=== PATIENT | female | born 1995 | race Caucasian/White ===

== ENCOUNTER 2017-03-08 21:27 | Emergency (ER) | payer MEDICAID ==
[~2017-03-08] VITALS: Ht 147.3 cm; Wt 68.0 kg
[2017-03-08 21:27] VITALS: BP_SYST 104
[2017-03-08] MEDS ORDERED: NACL 0.9% 1,000 ML IV ONE (21:44)
[2017-03-08] MEDS ORDERED: ONDANSETRON HCL 4 MG/2 ML VIAL IVP ONE (21:45)
[2017-03-08] MEDS ORDERED: KETOROLAC TROMETHAMINE 30 MG VIAL IVP ONE (21:45)
[2017-03-08 22:12] LABS: BASOPHILS % (AUTO) 0.4 % (0.0-2.0); EOSINOPHILS # (AUTO) 0.2 K/uL (0.0-0.4); HEMATOCRIT 35.2 % (36-48); HEMOGLOBIN 12.1 g/dL (12.0-16.0); LYMPHOCYTES # (AUTO) 1.7 K/uL (1.0-5.5); LYMPHOCYTES % (AUTO) 18.9 % (20.5-51.5); MEAN CORPUSCULAR HEMOGLOBIN 29 pg (27-31); MEAN CORPUSCULAR HGB CONC 35 % (32-36); MEAN CORPUSCULAR VOLUME 84 fL (79.0-98.0); MONOCYTES # (AUTO) 0.6 K/uL (0.0-1.0); MONOCYTES % (AUTO) 7.2 % (1.7-9.3); NEUTROPHILS # (AUTO) 6.4 K/uL (1.8-7.7); NEUTROPHILS % (AUTO) 71.5 % (40.0-70.0); PLATELET COUNT (AUTO) 275 K/uL (130-430); RED BLOOD CELL COUNT(AUTO) 4.17 MIL/uL (4.2-6.2); RED CELL DISTRIBUTION WIDTH 12.6 % (9.0-15.0); WHITE BLOOD COUNT (AUTO) 8.9 K/uL (4.8-10.8)
[2017-03-08 22:45] LABS: CALCIUM 8.6 mg/dL (8.4-11.0); CREATININE 0.56 mg/dL (0.55-1.30); POTASSIUM 3.6 mmol/L (3.5-5.1)
[2017-03-08 22:50] LABS: ALBUMIN 3.3 g/dL (3.4-4.8); TOTAL BILIRUBIN 0.3 mg/dL (0.0-1.0); TOTAL PROTEIN, SERUM 7.2 g/dL (6.4-8.3)
[2017-03-08 22:58] LABS: BILIRUBIN,URINE NEGATIVE (NEGATIVE); BLOOD, URINE NEGATIVE (NEGATIVE); COLOR,URINE YELLOW (YELLOW); GLUCOSE,URINE NEGATIVE (NEGATIVE); KETONES,URINE NEGATIVE (NEGATIVE); LEUKOCYTE ESTERASE ,URINE TRACE (NEGATIVE); NITRITE, URINE NEGATIVE (NEGATIVE); PH,URINE 5.5 (5.0-8.0); PROTEIN URINE NEGATIVE (NEGATIVE); UROBILINOGEN,URINE 0.2 (0.2-1.0)
[2017-03-08 23:05] LABS: CLARITY/URINE SLIGHTLY HAZY (CLEAR)
[2017-03-08 23:12] LABS: BACTERIA,URINE MODERATE /HPF (None Seen); MUCUS,URINE 1+ /LPF (None Seen); RBC,URINE NONE SEEN /HPF (0-3)
[2017-03-08] MEDS ORDERED: LEVOFLOXACIN 500 MG TABLET PO ONE (23:30)
[2017-03-08] MEDS ORDERED: fentaNYL CITRATE/PF 100 MCG/2 ML AMP IVP ONE (23:30)
[2017-03-09] MEDS ORDERED: HYDROmorphone 1 MG INJ. 1 MG/ML AMPUL IVP ONE (01:00)
[2017-03-09] MEDS ORDERED: NACL 0.9% 1,000 ML IV ONE (01:45)
[2017-03-09 02:04] VITALS: BP_SYST 107
== END 2017-03-09 02:04 | disposition home or self-care (01) ==
LOC: SED 21:27
DX: N12 Tubulo-interstitial nephritis, not specified as acute or chronic (principal); R10.11 Right upper quadrant pain; K59.00 Constipation, unspecified
CPT/HCPCS: 36415; 74176; 76700; 80053; 81000; 83690; 81025; 85025; 87086; 96361; 96374; 96375; 99285; J1170; J1885; J2405; J3010; J7030 ×2

== ENCOUNTER 2017-07-09 13:58 | Emergency (ER) | payer MEDICAID ==
[~2017-07-09] VITALS: Ht 149.9 cm; Wt 68.0 kg
[2017-07-09 14:08] VITALS: BP_SYST 114
--- NOTE | 2017-07-09 15:29 | NUR ---
Patient to ER [place] [facility] to [facility] for evaluation. Side rails up. Report given to Juancho ZARCO.
--- NOTE | 2017-07-09 15:45 | NUR ---
Patient to ER via triage with c/o dizziness that is worse with movement x 1 day, patient also c/o headache rated 8/10 and nausea. Patient denies CP/SOB at present. Patient able to ambulate without difficulty with slow, steady gait. Awaiting evaluation by ER MD-Will continue to observe and assess.
--- NOTE | 2017-07-09 16:00 | NUR ---
Dr Townsend at bedside to evaluate patient.
[2017-07-09] MEDS ORDERED: MECLIZINE HCL 25 MG TABLET (ANITVERT) PO ONE (16:15)
[2017-07-09] MEDS ORDERED: METOCLOPRAMIDE HCL 10 MG/2 ML VIAL IVP ONE (16:15)
[2017-07-09 16:23] LABS: BILIRUBIN,URINE NEGATIVE (NEGATIVE); BLOOD, URINE 2+ (NEGATIVE); CLARITY/URINE CLEAR (CLEAR); COLOR,URINE YELLOW (YELLOW); GLUCOSE,URINE NEGATIVE (NEGATIVE); KETONES,URINE NEGATIVE (NEGATIVE); LEUKOCYTE ESTERASE ,URINE NEGATIVE (NEGATIVE); NITRITE, URINE NEGATIVE (NEGATIVE); PH,URINE 6.5 (5.0-8.0); PROTEIN URINE NEGATIVE (NEGATIVE); UROBILINOGEN,URINE 0.2 (0.2-1.0)
[2017-07-09 16:50] LABS: BACTERIA,URINE FEW /HPF (None Seen); MUCUS,URINE None Seen /LPF (None Seen); WBC,URINE NONE SEEN /HPF (0-3)
--- NOTE | 2017-07-09 17:00 | NUR ---
Patient resting quietly in nad. Awaiting dispo.
--- NOTE | 2017-07-09 17:45 | NUR ---
Patient given written and verbal discharge instructions and verbalizes understanding. ER MD discussed with patient the results and treatment provided. Patient in stable condition. ID arm band removed. IV catheter removed intact and dressing applied, no active bleeding. Rx of Reglan, Meclizine given. Patient educated on pain management and to follow up with PMD. Pain Scale 2. Opportunity for questions provided and answered.
[2017-07-09 17:50] VITALS: BP_SYST 96
== END 2017-07-09 17:50 | disposition home or self-care (01) ==
LOC: SED 13:58
DX: G43.909 Migraine, unspecified, not intractable, without status migrainosus (principal); H81.10 Benign paroxysmal vertigo, unspecified ear; Z87.891 Personal history of nicotine dependence
CPT/HCPCS: 70450; 81000; 81025; 93005; 96374; 99285; J2765; J8597

== ENCOUNTER 2018-11-11 16:33 | Emergency (ER) | payer MEDICAID ==
[~2018-11-11] VITALS: Ht 152.4 cm; Wt 72.6 kg
[2018-11-11 16:40] VITALS: BP_SYST 100
[2018-11-11] MEDS ORDERED: DIPHENHYDRAMINE INJ 50 MG/ML VIAL IVP ONE ×2 (17:15→18:15)
[2018-11-11] MEDS ORDERED: NACL 0.9% 1,000 ML IV ONE (17:15)
[2018-11-11] MEDS ORDERED: chlorproMAZINE HCL 50 MG/ 2 ML AMP IV ONE (17:15)
[2018-11-11 17:37] LABS: BILIRUBIN,URINE NEGATIVE (NEGATIVE); BLOOD, URINE NEGATIVE (NEGATIVE); CLARITY/URINE CLEAR (CLEAR); COLOR,URINE YELLOW (YELLOW); GLUCOSE,URINE NEGATIVE (NEGATIVE); KETONES,URINE NEGATIVE (NEGATIVE); LEUKOCYTE ESTERASE ,URINE 1+ (NEGATIVE); NITRITE, URINE NEGATIVE (NEGATIVE); PROTEIN URINE NEGATIVE (NEGATIVE); UROBILINOGEN,URINE 0.2 (0.2-1.0)
[2018-11-11 17:43] LABS: BACTERIA,URINE FEW /HPF (None Seen); RBC,URINE 0-3 /HPF (0-3)
[2018-11-11] MEDS ORDERED: cefTRIAXone 1 GM IVPB PREMIX 50 ML IV ONE (17:45)
[2018-11-11] MEDS ORDERED: DIPHENHYDRAMINE INJ 50 MG/ML VIAL ONE (18:16)
[2018-11-11] MEDS ORDERED: NACL 0.9% 500 ML IV ONE ×2 (18:24→18:30)
[2018-11-11 19:00] VITALS: BP_SYST 120
== END 2018-11-11 19:00 | disposition home or self-care (01) ==
LOC: SED 16:33
DX: R51 Headache (principal); N39.0 Urinary tract infection, site not specified; R03.0 Elevated blood-pressure reading, without diagnosis of hypertension
CPT/HCPCS: 36415; 81000; 81025; 87040; 87086; 96365; 96375; 99283; J0696; J1200; J3230; J7030; J7040

== ENCOUNTER 2019-01-06 01:18 | Emergency (ER) | payer MEDICAID ==
[~2019-01-06] VITALS: Ht 149.9 cm; Wt 73.9 kg
[2019-01-06 01:21] VITALS: BP_SYST 114
[2019-01-06] MEDS ORDERED: KETOROLAC TROMETHAMINE 30 MG VIAL IM ONE (01:45)
[2019-01-06 02:29] VITALS: BP_SYST 114
== END 2019-01-06 02:29 | disposition home or self-care (01) ==
LOC: SED 01:18
DX: M94.0 Chondrocostal junction syndrome [Tietze] (principal)
CPT/HCPCS: 71045; 81025; 96372; 99283; J1885

== ENCOUNTER 2019-01-08 23:27 | Emergency (ER) | payer MEDICAID ==
[~2019-01-08] VITALS: Ht 149.9 cm; Wt 73.9 kg
[2019-01-08 23:30] VITALS: BP_SYST 113
[2019-01-09 00:13] LABS: BASOPHILS # (AUTO) 0.1 K/uL (0.0-0.2); BASOPHILS % (AUTO) 0.7 % (0.0-2.0); EOSINOPHILS # (AUTO) 0.4 K/uL (0.0-0.4); HEMATOCRIT 37.8 % (36-48); HEMOGLOBIN 12.8 g/dL (12.0-16.0); LYMPHOCYTES # (AUTO) 2.7 K/uL (1.0-5.5); MEAN CORPUSCULAR HEMOGLOBIN 30 pg (27-31); MEAN CORPUSCULAR HGB CONC 34 % (32-36); MEAN CORPUSCULAR VOLUME 88 fL (79.0-98.0); MONOCYTES # (AUTO) 0.5 K/uL (0.0-1.0); MONOCYTES % (AUTO) 5.9 % (1.7-9.3); NEUTROPHILS # (AUTO) 5.1 K/uL (1.8-7.7); NEUTROPHILS % (AUTO) 58.4 % (40.0-70.0); PLATELET COUNT (AUTO) 322 K/uL (130-430); RED BLOOD CELL COUNT(AUTO) 4.29 MIL/uL (4.2-6.2); RED CELL DISTRIBUTION WIDTH 12.8 % (9.0-15.0); WHITE BLOOD COUNT (AUTO) 8.8 K/uL (4.8-10.8)
[2019-01-09 00:24] LABS: CALCIUM 9.2 mg/dL (8.4-11.0); CREATININE 0.63 mg/dL (0.55-1.30); POTASSIUM 3.6 mmol/L (3.5-5.1)
[2019-01-09 00:30] LABS: ALBUMIN 3.5 g/dL (3.4-4.8); TOTAL BILIRUBIN 0.3 mg/dL (0.0-1.0)
[2019-01-09] MEDS ORDERED: KETOROLAC TROMETHAMINE 30 MG VIAL IVP ONE (00:30)
[2019-01-09 00:56] VITALS: BP_SYST 113
== END 2019-01-09 00:56 | disposition home or self-care (01) ==
LOC: SED 23:27
DX: R00.2 Palpitations (principal); R07.89 Other chest pain; F41.9 Anxiety disorder, unspecified
CPT/HCPCS: 36415; 80053; 81025; 84484; 85025; 93005; 96374; 99284; J1885

== ENCOUNTER 2020-10-10 14:18 | Emergency (ER) | payer MEDICAID ==
[~2020-10-10] VITALS: Ht 149.9 cm; Wt 82.6 kg
[2020-10-10 14:26] VITALS: BP_SYST 111
[2020-10-10] MEDS ORDERED: METOCLOPRAMIDE HCL 10 MG/2 ML VIAL IVP ONE (14:30)
[2020-10-10] MEDS ORDERED: NACL 0.9% 1,000 ML IV ONE (14:30)
[2020-10-10 14:57] LABS: BASOPHILS % (AUTO) 0.3 % (0.0-2.0); EOSINOPHILS # (AUTO) 0.1 K/uL (0.0-0.4); EOSINOPHILS % (AUTO) 1.5 % (0.0-4.0); HEMATOCRIT 31.4 % (36-48); LYMPHOCYTES # (AUTO) 1.5 K/uL (1.0-5.5); LYMPHOCYTES % (AUTO) 19.5 % (20.5-51.5); MEAN CORPUSCULAR HEMOGLOBIN 29 pg (27-31); MEAN CORPUSCULAR HGB CONC 35 % (32-36); MEAN CORPUSCULAR VOLUME 82 fL (79.0-98.0); MONOCYTES # (AUTO) 0.5 K/uL (0.0-1.0); MONOCYTES % (AUTO) 5.8 % (1.7-9.3); NEUTROPHILS # (AUTO) 5.8 K/uL (1.8-7.7); NEUTROPHILS % (AUTO) 72.9 % (40.0-70.0); PLATELET COUNT (AUTO) 261 K/uL (130-430); RED BLOOD CELL COUNT(AUTO) 3.85 MIL/uL (4.2-6.2); WHITE BLOOD COUNT (AUTO) 7.9 K/uL (4.8-10.8)
[2020-10-10 15:09] LABS: BILIRUBIN,URINE NEGATIVE (NEGATIVE); BLOOD, URINE NEGATIVE (NEGATIVE); CLARITY/URINE CLEAR (CLEAR); COLOR,URINE YELLOW (YELLOW); GLUCOSE,URINE NEGATIVE (NEGATIVE); KETONES,URINE NEGATIVE (NEGATIVE); LEUKOCYTE ESTERASE ,URINE NEGATIVE (NEGATIVE); NITRITE, URINE NEGATIVE (NEGATIVE); PH,URINE 7.5 (5.0-8.0); PROTEIN URINE NEGATIVE (NEGATIVE); UROBILINOGEN,URINE 0.2 (0.2-1.0)
[2020-10-10 15:16] LABS: ALBUMIN 2.6 g/dL (3.4-4.8); CALCIUM 8.7 mg/dL (8.4-11.0); CREATININE 0.49 mg/dL (0.55-1.30); POTASSIUM 3.7 mmol/L (3.5-5.1); TOTAL BILIRUBIN 0.1 mg/dL (0.0-1.0)
[2020-10-10 16:02] VITALS: BP_SYST 111
== END 2020-10-10 16:02 | disposition home or self-care (01) ==
LOC: SED 14:18
DX: O21.0 Mild hyperemesis gravidarum (principal); O99.012 Anemia complicating pregnancy, second trimester; O26.892 Other specified pregnancy related conditions, second trimester; E86.0 Dehydration; Z3A.15 15 weeks gestation of pregnancy
CPT/HCPCS: 36415; 80053; 81003; 85025; 96360; 99283; J2765

== ENCOUNTER 2022-03-29 17:42 | Emergency (ER) | payer MEDICAID ==
[~2022-03-29] VITALS: Ht 149.9 cm; Wt 78.5 kg
[2022-03-29 17:47] VITALS: BP_SYST 112
[2022-03-29] MEDS ORDERED: NACL 0.9% 1,000 ML IV ONE (18:00)
[2022-03-29] MEDS ORDERED: MORPHINE 4 MG INJ. 4 MG/ML VIAL IVP ONE (18:00)
[2022-03-29 18:15] LABS: BASOPHILS % (AUTO) 0.3 % (0.0-2.0); EOSINOPHILS # (AUTO) 0.1 K/uL (0.0-0.4); HEMOGLOBIN 11.2 g/dL (12.0-16.0); LYMPHOCYTES # (AUTO) 1.2 K/uL (1.0-5.5); LYMPHOCYTES % (AUTO) 16.9 % (20.5-51.5); MEAN CORPUSCULAR HEMOGLOBIN 30 pg (27-31); MEAN CORPUSCULAR HGB CONC 35 % (32-36); MEAN CORPUSCULAR VOLUME 86 fL (79.0-98.0); MONOCYTES # (AUTO) 0.3 K/uL (0.0-1.0); MONOCYTES % (AUTO) 4.4 % (1.7-9.3); NEUTROPHILS # (AUTO) 5.7 K/uL (1.8-7.7); NEUTROPHILS % (AUTO) 77.4 % (40.0-70.0); PLATELET COUNT (AUTO) 258 K/uL (130-430); RED BLOOD CELL COUNT(AUTO) 3.74 MIL/uL (4.2-6.2); RED CELL DISTRIBUTION WIDTH 12.9 % (9.0-15.0); WHITE BLOOD COUNT (AUTO) 7.4 K/uL (4.8-10.8)
[2022-03-29 18:22] LABS: POTASSIUM 3.6 mmol/L (3.5-5.1)
[2022-03-29 19:23] LABS: ALBUMIN 2.6 g/dL (3.4-4.8); CREATININE 0.35 mg/dL (0.55-1.30); TOTAL BILIRUBIN 0.1 mg/dL (0.0-1.0)
--- NOTE | 2022-03-29 20:07 | NUR ---
DR. ALEXANDRA SEEING PATIENT IN TRIAGE
--- NOTE | 2022-03-29 20:50 | NUR ---
PATIENT [place] TO BED [address] ALEXANDRA, PLACED IN GOWN.
--- NOTE | 2022-03-29 21:12 | NUR ---
PT FROM HOME WITH C/O OF SHE HAS "A BALL IN MY VAGINA." PT STATES HE OB TOLD HER TO COME INTO THE ER. STATES SOME DISCOMFORT IN THE AREA.
--- NOTE | 2022-03-29 21:45 | NUR ---
Patient given written and verbal discharge instructions and verbalizes understanding. ER MD discussed with patient the results and treatment provided. Patient in stable condition. ID arm band removed. IV catheter removed intact and dressing applied, no active bleeding. Rx of N/A given. Patient educated on pain management and to follow up with PMD. Pain Scale . Opportunity for questions provided and answered. Medication side effect fact sheet provided.
== END 2022-03-29 21:45 | disposition home or self-care (01) ==
LOC: SED 17:42
DX: N90.7 Vulvar cyst (principal); R22.42 Localized swelling, mass and lump, left lower limb; Z79.899 Other long term (current) drug therapy
CPT/HCPCS: 36415; 80053; 81025; 84702; 85025; 99284

== ENCOUNTER 2022-10-24 13:36 | Emergency (ER) | payer MEDICAID ==
[~2022-10-24] VITALS: Ht 149.9 cm; Wt 75.7 kg
[2022-10-24 14:05] VITALS: BP_SYST 111
--- NOTE | 2022-10-24 14:05 | NUR ---
Patient triaged and placed in waiting room. VSS and patient appears in no acute distress at this time. Accompanied by FRIEND, awaiting available bed, and MD notified of need for MSE.
--- NOTE | 2022-10-24 15:14 | NUR ---
CALL TO LAB, NO ANSWER
--- NOTE | 2022-10-24 16:20 | NUR ---
Placed in room 04 . Placed on vehicle monitor technician, blood pressure machine and pulse oximeter. To gown for exam. Side rails up. Report given to HAROLDO RIVERA.
--- NOTE | 2022-10-24 16:27 | NUR ---
Patient brought in by boyfriend from home. Chief Complaint: vaginal bleeding x2d, states "used 15 pads in one day, changing every hour". Patient awake, alert, and oriented x3. Patient denies pain at this time. Patient stable. Boyfriend at bedside.
--- NOTE | 2022-10-24 16:45 | NUR ---
Urine dipstick and hcg obtained, and documented.
[2022-10-24 16:56] LABS: BASOPHILS % (AUTO) 0.5 % (0.0-2.0); EOSINOPHILS # (AUTO) 0.1 K/uL (0.0-0.4); HEMATOCRIT 35.2 % (36-48); HEMOGLOBIN 12.1 g/dL (12.0-16.0); LYMPHOCYTES # (AUTO) 1.6 K/uL (1.0-5.5); LYMPHOCYTES % (AUTO) 19.4 % (20.5-51.5); MEAN CORPUSCULAR HEMOGLOBIN 30 pg (27-31); MEAN CORPUSCULAR HGB CONC 34 % (32-36); MEAN CORPUSCULAR VOLUME 86 fL (79.0-98.0); MONOCYTES # (AUTO) 0.4 K/uL (0.0-1.0); NEUTROPHILS # (AUTO) 6.1 K/uL (1.8-7.7); NEUTROPHILS % (AUTO) 74.1 % (40.0-70.0); PLATELET COUNT (AUTO) 274 K/uL (130-430); RED BLOOD CELL COUNT(AUTO) 4.09 MIL/uL (4.2-6.2); RED CELL DISTRIBUTION WIDTH 13.1 % (9.0-15.0); WHITE BLOOD COUNT (AUTO) 8.3 K/uL (4.8-10.8)
--- NOTE | 2022-10-24 17:05 | NUR ---
ER Dr. Hathaway at bedside examining patient.
[2022-10-24] MEDS ORDERED: MEDR10TA72 PO (17:21)
[2022-10-24] MEDS ORDERED: IBUP-1971 PO (17:22)
--- NOTE | 2022-10-24 17:26 | NUR ---
Additional info RE: Surgical Hx 04/2022
--- NOTE | 2022-10-24 17:49 | NUR ---
Patient given written and verbal discharge instructions and verbalizes understanding. ER MD Emerson discussed with patient the results and treatment provided. Patient in stable condition. ID arm band removed. Rx of Ibuprofen 800mg and Provera given. Patient educated on pain management and to follow up with PMD. Pain Scale 0/10. Opportunity for questions provided and answered. Medication side effect fact sheet provided. Patient stable, discharged home with boyfriend.
[2022-10-24 18:20] VITALS: BP_SYST 111
== END 2022-10-24 18:19 | disposition home or self-care (01) ==
LOC: U 13:36
DX: N93.8 Other specified abnormal uterine and vaginal bleeding (principal); R42 Dizziness and giddiness; R10.30 Lower abdominal pain, unspecified; Z79.899 Other long term (current) drug therapy
CPT/HCPCS: 36415; 81002; 81025; 85025; 99283

== ENCOUNTER 2022-12-15 09:10 | Emergency (ER) | payer MEDICAID ==
[~2022-12-15] VITALS: Ht 149.9 cm; Wt 71.7 kg
[~2022-12-15 09:10] MED LIST: IBUP-1971 PO; MEDR10TA72 PO
--- NOTE | 2022-12-15 09:10 | NUR ---
URINE OBTAINED, TEST NEGATIVE. BLOOD OBTAINED AND TAKEN TO LAB. EKG COMPLETED AND GIVEN TO DR. ORONA.
--- NOTE | 2022-12-15 09:10 | NUR ---
RECEIVED PT FROM HAROLDO SCHULTE. PT BIBS S/P SYNCONPE EPISODE. PT STATED SHE WAS HIKING AND STARTED TO SEE SPOTS, THEN WOKE UP WITH A COUPLE TRYING TO WAKE HER STATING THEY FOUND HER ON THE GROUNG PASSED OUT. PT IS AAOX4 WITH C/O H/A. RESP E/U. ON R/A. SKIN CDI, WARM, DISTAL PULSES NORMAL. SIDERAILS UP X2.
--- NOTE | 2022-12-15 09:10 | NUR ---
Patient to ER bed 2 to gown for evaluation. Side rails up. Report given to Eunice ZARCO.
--- NOTE | 2022-12-15 09:12 | NUR ---
DR. ORONA AT BEDSIDE TO ASSESS PT.
[2022-12-15 09:20] VITALS: BP_SYST 111
[2022-12-15 09:43] LABS: BASOPHILS % (AUTO) 0.6 % (0.0-2.0); EOSINOPHILS # (AUTO) 0.1 K/uL (0.0-0.4); EOSINOPHILS % (AUTO) 1.5 % (0.0-4.0); HEMATOCRIT 35.7 % (36-48); HEMOGLOBIN 11.9 g/dL (12.0-16.0); LYMPHOCYTES # (AUTO) 1.8 K/uL (1.0-5.5); LYMPHOCYTES % (AUTO) 30.8 % (20.5-51.5); MEAN CORPUSCULAR HEMOGLOBIN 29 pg (27-31); MEAN CORPUSCULAR HGB CONC 33 % (32-36); MEAN CORPUSCULAR VOLUME 87 fL (79.0-98.0); MONOCYTES # (AUTO) 0.4 K/uL (0.0-1.0); MONOCYTES % (AUTO) 6.8 % (1.7-9.3); NEUTROPHILS # (AUTO) 3.5 K/uL (1.8-7.7); NEUTROPHILS % (AUTO) 60.3 % (40.0-70.0); PLATELET COUNT (AUTO) 282 K/uL (130-430); RED BLOOD CELL COUNT(AUTO) 4.09 MIL/uL (4.2-6.2); RED CELL DISTRIBUTION WIDTH 13.1 % (9.0-15.0); WHITE BLOOD COUNT (AUTO) 5.9 K/uL (4.8-10.8)
[2022-12-15 10:08] LABS: ALANINE AMINOTRANSFERASE 20 U/L (12-78); ALBUMIN 3.2 g/dL (3.4-4.8); ANION GAP 10 (5-15); ASPARTATE AMINOTRANSFERASE 11 U/L (10-37); CALCIUM 8.1 mg/dL (8.4-11.0); CHLORIDE 104 mmol/L (98-107); CREATININE 0.68 mg/dL (0.55-1.30); GFR AFRICAN AMERICAN 133 mL/min (>90); GLUCOSE 121 mg/dL (70-99); TOTAL BILIRUBIN 0.4 mg/dL (0.0-1.0); UREA NITROGEN, BLOOD 10 mg/dL (8-21)
--- NOTE | 2022-12-15 10:33 | NUR ---
PT TAKEN TO CT SCAN AT THIS TIME.
[2022-12-15] MEDS ORDERED: TRAM50TA2 PO (11:19)
[2022-12-15] MEDS ORDERED: IBUP-1969 PO (11:19)
--- NOTE | 2022-12-15 11:19 | NUR ---
DR. ORONA AT BEDSIDE TO DISCUSS POC.
[2022-12-15] MEDS ORDERED: IBUPROFEN 800 MG TABLET PO ONE (11:30)
[2022-12-15] MEDS ORDERED: HYDROcodone/ACETAMIN 10-325 MG TAB PO ONE (11:30)
[2022-12-15 11:40] VITALS: BP_SYST 112
--- NOTE | 2022-12-15 11:53 | NUR ---
SCHEDULED MEDS GIVEN AND TOLERATED WELL.
--- NOTE | 2022-12-15 12:15 | NUR ---
Patient given written and verbal discharge instructions and verbalizes understanding. ER MD discussed with patient the results and treatment provided. Patient in stable condition. ID arm band removed. Rx of IBUPROPEN, NORCO given. Patient educated on pain management and to follow up with PMD. Pain Scale 0/10. Opportunity for questions provided and answered. Medication side effect fact sheet provided.
== END 2022-12-15 12:15 | disposition home or self-care (01) ==
LOC: SED 09:10
DX: R55 Syncope and collapse (principal); R42 Dizziness and giddiness; R51.9 Headache, unspecified; Z79.899 Other long term (current) drug therapy
CPT/HCPCS: 36415; 70450-TC; 71045; 76376; 80053; 81025; 82550; 83605; 84484; 85025; 93005; 99285